=== PATIENT | female | born 1975 | race Caucasian/White ===

== ENCOUNTER 2024-04-05 11:19 | Emergency (ER) | payer OTHER ==
[~2024-04-05] VITALS: Ht 157.5 cm; Wt 49.9 kg
[2024-04-05 11:32] VITALS: BP_SYST 143; PULSE 116; RESP 18; TEMP 98.3; O2SAT 98
[2024-04-05] MEDS: EPINEPHRINE HCL/PF 1 MG/ML AMP IM ONE (12:27)
[2024-04-05] MEDS ORDERED: IBUPROFEN 800 MG TABLET ONE (12:59)
[2024-04-05] MEDS: IBUPROFEN 800 MG TABLET PO ONE ×2 (12:59→13:06)
[2024-04-05] MEDS ORDERED: EPIN0.3P3 IM (13:45)
[2024-04-05 13:59] VITALS: BP_SYST 120; PULSE 98; RESP 20; TEMP 98.3; O2SAT 99
== END 2024-04-05 13:59 | disposition home or self-care (01) ==
LOC: SED 11:19
DX: R21 Rash and other nonspecific skin eruption (principal); T36.4X5A Adverse effect of tetracyclines, initial encounter; T38.0X5A Adverse effect of glucocorticoids and synthetic analogues, initial encounter; Y92.89 Other specified places as the place of occurrence of the external cause
CPT/HCPCS: 99283; 96372; J0171